=== PATIENT | female | born 1960 | race African-American/Black ===

== ENCOUNTER 2024-12-24 10:11 | Emergency (ER) | payer SELFPAY ==
[~2024-12-24] VITALS: Ht 167.6 cm; Wt 81.6 kg
[2024-12-24 10:15] VITALS: BP 178/114; TEMP 36.8; O2SAT 100
[2024-12-24 12:25] VITALS: PULSE 89; RESP 18; O2SAT 99
[2024-12-24 12:51] LABS: BASOPHILS % 1.2 % (0.0-2.0); DIFFERENTIAL COMMENT 0; EOSINOPHILS % 5.3 % (0.0-5.0); HEMATOCRIT. 40.3 % (36.0-48.0); HEMOGLOBIN. 12.4 g/dL (12.0-16.0); LYMPHOCYTES % 35.2 % (20.0-50.0); MEAN CORPUSCULAR HEMOGLOBIN 22.6 pg (28.0-32.0); MEAN CORPUSCULAR HGB CONC 30.8 g/dL (31.0-37.0); MEAN CORPUSCULAR VOLUME 73.5 fL (81.0-99.0); MEAN PLATELET VOLUME 8.1 fl (7.4-10.4); MONOCYTES % 8.8 % (2.0-8.0); NEUTROPHILS % 49.5 % (40.0-76.0); PLATELET 313 x1000/uL (130-400); RED BLOOD CELL COUNT 5.48 mill/uL (4.2-5.4); RED CELL DISTRIBUTION WIDTH 14.6 % (11.6-14.6)
[2024-12-24 13:06] LABS: CHLORIDE 106 mEq/L (98-107); POTASSIUM 3.9 mEq/L (3.5-5.1); SODIUM 141 mEq/L (136-145)
[2024-12-24 13:07] LABS: CALCIUM 9.8 mg/dL (8.7-10.4); CARBON DIOXIDE 26 mEq/L (21-32)
[2024-12-24 13:12] LABS: CREATININE 0.8 mg/dL (0.6-1.0); GLUCOSE 83 mg/dL (70-105); UREA NITROGEN BLOOD 11 mg/dL (9-23)
[2024-12-24 14:02] LABS: B-HCG QUANTITATIVE 2 mIU/mL (<6)
[2024-12-24] MEDS ORDERED: IBUP-2029 MT (15:41)
== END 2024-12-24 16:15 | disposition home or self-care (01) ==
LOC: ER 10:11
DX: S09.90XA Unspecified injury of head, initial encounter (principal); M51.372 Other intervertebral disc degeneration, lumbosacral region with discogenic back pain and lower extremity pain; M54.2 Cervicalgia; M54.50 Low back pain, unspecified; M25.512 Pain in left shoulder; M25.561 Pain in right knee; M25.552 Pain in left hip; Z79.899 Other long term (current) drug therapy; I10 Essential (primary) hypertension; W01.0XXA Fall on same level from slipping, tripping and stumbling without subsequent striking against object, initial encounter; Y93.89 Activity, other specified; Y92.89 Other specified places as the place of occurrence of the external cause; Y99.8 Other external cause status
CPT/HCPCS: 36415; 72131; 72170; 73030; 73562; 80048; 84702; 85025; 99284